=== PATIENT | male | born 2000 | race African-American/Black ===

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

== ENCOUNTER 2023-10-13 19:18 | Emergency (ER) | payer MEDICAID ==
[~2023-10-13] VITALS: Ht 175.3 cm; Wt 110.0 kg
[2023-10-13] MEDS ORDERED: ALBUTEROL SULF 2.5 MG/0.5ML(0.5%) NEB SOLN ONE (20:43)
[2023-10-13] MEDS ORDERED: predniSONE 20 MG TAB PO ONE (20:45)
[2023-10-13] MEDS ORDERED: ALBUTEROL SULF 2.5 MG/0.5ML(0.5%) NEB SOLN NEB ONE (20:45)
[2023-10-13] MEDS ORDERED: PANTOPRAZOLE 40 MG TAB PO ONE (20:45)
[2023-10-13] MEDS ORDERED: ALBU108A5 IN (22:54)
[2023-10-13] MEDS ORDERED: AZIT-81 PO (22:54)
[2023-10-13] MEDS ORDERED: PRED20TA2 PO (22:54)
[2023-10-13] MEDS ORDERED: PANT40TA2 PO (22:54)
[2023-10-13 23:57] VITALS: BP 137/87; PULSE 88; RESP 18; TEMP 99.2; O2SAT 98
== END 2023-10-13 23:59 | disposition home or self-care (01) ==
LOC: ER 19:18
DX: R06.02 Shortness of breath (principal); F12.10 Cannabis abuse, uncomplicated; F17.210 Nicotine dependence, cigarettes, uncomplicated
CPT/HCPCS: 71045; 93005; 94640; 99283; J7512

== ENCOUNTER 2025-03-21 15:36 | Inpatient (IN) | payer MEDICAID ==
[~2025-03-21] VITALS: Ht 175.3 cm; Wt 114.5 kg
[~2025-03-21 15:36] MED LIST: ALBU108A5 IN; AZIT-185 PO; PANT40TA2 PO; PRED20TA2 PO
--- NOTE | 2025-03-21 16:31 | DVH ---
CHEST RADIOGRAPH Indication: weakness Technique: Single frontal view of the chest was obtained Comparison: XY CHEST PORTABLE on DOS: 10/13/23 FINDINGS: Lines and Tubes: None Lungs: No focal consolidation. Pleura: No effusion. No pneumothorax. Cardiomediastinal contours: Unremarkable Bones: No acute osseous abnormality. IMPRESSION: 1. No acute cardiopulmonary disease. No significant change from 10/13/2023. HS:Y
--- NOTE | 2025-03-21 16:45 | ED.PDOC ---
History of Present Illness HPI Comments 24 y/o obese M presents with 3-4 day history of fatigue, poor appetite, and nausea after consuming alcohol, again, following 35 day abstinence. No other acute symptoms endorsed. Vitals: temperature of 97.0F, pulse of 77, respiratory rate 20, blood pressure of 122/56, and a SpO2 of 99%RAJuan Manuel POLLACK: HPI: Poor Historian. Past Medical History: Past Surgical History: REVIEW OF SYSTEMS: CONSTITUTIONAL: Denies acute: fever, diaphoresis, chills, HEAD: Denies acute: headache, photophobia Eyes: Denies acute: Double vision, vision loss, eye pain, eye discharge. EARS: Denies acute: tinnitus, hearing loss, ear discharge, ear pain, THROAT: Denies acute: sore throat, swelling, difficulty swallowing , pain with swallowing, change in voice. NECK: Denies acute: neck pain, neck swelling, stiff neck. HEART: Denies acute : chest pain, palpitations, LUNGS: Denies acute: SOB, wheezing, cough, hemoptysis ABDOMEN: Denies acute: abdominal pain, , Vomiting, diarrhea, melena , hematemesis, hematochezia SKIN: Denies acute: rash, redness, lesions, itchiness. EXTREMITIES: Denies acute: calf pain, numbness, tingling, weakness, denies pain in extremity. Denies acute: Low back pain. Neuro: Denies acute: focal neurological deficit, motor or sensory focal neurological deficit, tremors, seizure like activity, confusion, , change in mental status, loss of bowel or bladder function, cauda equina like symptoms. : Denies acute: dysuria, hematuria, flank pain, increase in urinary frequency. PSYCH: Denies acute: hallucination, suicidal ideation, homicidal ideation. PHYSICAL EXAM: General: -----no---acute distress, awake and alert. Head: normocephalic, atraumatic. Neck: supple, trachea is midline, no swelling. Throat: Normal phonation. Eyes:, no erythema, no purulent discharge, no proptosis, no icterus. Heart: regular rate, regular rhythm, no significant murmur appreciated. Lungs: no apparent respiratory distress, Able to speak in full sentences. No wheezing, no rhonchi, no crackles. No stridors Clear to auscultation bilaterally. Abdomen: non tender to palpation, non distended, soft, no guarding, no rebound, + bowel sounds. Neuro: Awake, Alert, oriented to name, self, situation, follows commands GCS=15. Speech is normal. Skin: no petechia, no purpura, no cyanosis, non-pale, not jaundice. Lower extremities: --no - Pitting edema no deformity, no focal swelling, no calf TTP. Makes eye contact. moves all four extremities. Face: no apparent facial droop. Ambulating in the ED independently. ED COURSE: DISCLAIMER: This medical document was created using an electronic medical record system with voice recognition software and computerized dictation system. Although this document has been carefully reviewed, there might still be some phonetic and typographical errors. Occasional wrong-word or "sound-alike" substitutions may have occurred due to the inherent limitations of voice recognition software. These areas are purely typographical due to imperfections of the software programs and do not reflect any compromise in the patient's medical care. Please read the chart carefully and recognize, using context, where these substitutions have occurred. Chief Complaint: Nausea/Vomiting Time Seen by MD: 16:00 Primary Care Provider: SUZE Allergies: Coded Allergies: NO KNOWN ALLERGIES (Unverified , 07/22/14) Home Meds Active Scripts Albuterol Sulfate (Albuterol Sulfate Hfa) 108 Mcg/Act Aer, 108 MCG IN TID, #1 AER Prov:DONAL DENISE MD 10/13/23 Pantoprazole Sodium Sesquihydr (Protonix) 40 Mg Tab, 40 MG PO BID, #30 TAB Prov:DONAL DENISE MD 10/13/23 Prednisone (Prednisone) 20 Mg Tab, 40 MG PO DAILY, #5 MG Prov:DONAL DENISE MD 10/13/23 Azithromycin (ZITHROMAX TABLET) 250 Mg Tb, 250 MG PO DAILY, #5 TAB Prov:DONAL DENISE MD 10/13/23 Information Source: Patient Mode of Arrival: Ambulatory Past Medical History PAST MEDICAL HISTORY: Denies Surgical History: Denies all surgeries Family History Family History: Unknown Social History Smoker: Non-Smoker Alcohol: Denies ETOH Use Drugs: Denies Drug Use Lives In: Home Was a procedure done? Was a procedure done?: No Differential Dx Considerations may include: Includes but not limited to thyroid disease, encephalopathy, electrolyte abnormality, sepsis, infection, intracranial pathology, drug adverse effects, arrhythmia, kidney insufficiency, ACS, CVA, malignancy, anemia X-Ray, Labs, Meds, VS Vital Signs Date Time Temp Pulse Resp B/P (MAP) Pulse Ox O2 Delivery O2 Flow Rate FiO2 03/21/25 15:37 97.0 77 20 122/56 (78) 99 97.0 Lab Test 03/21/25 16:56 03/21/25 16:30 Range/Units Urine Color [place] H Yellow Urine Clarity Turbid H Clear Urine pH 6.0 5.0-9.0 Urine Specific [place] 1.039 H 1.001-1.035 Urine Protein 3+ H Negative Urine Ketones 2+ H Negative Urine Blood 3+ H Negative /uL Urine Nitrite Negative Negative Urine Bilirubin 1+ Negative Urine Urobilinogen 2 H Negative mg/dL Urine Leukocyte Esterase Negative Negative /uL Urine RBC 6 0 - 3 /hpf Urine Microscopic WBC 7 H 0-3 /HPF Urine Squamous Epithelial Cells Many <5 /hpf Urine Transitional Epithelial Cells Few <2 /hpf Urine Bacteria None seen None Seen /hpf Urine Granular Casts Mod 0 /lpf Urine Mucus Few None Seen Urine Glucose Trace Normal mg/dL Urine Opiates Screen Neg NEGATIVE Urine Fentanyl Screen Neg NEGATIVE Urine Barbiturates Screen Neg NEGATIVE Urine Phencyclidine Screen Neg NEGATIVE Urine Amphetamines Screen Neg NEGATIVE Urine Benzodiazepines Screen Neg NEGATIVE Urine Cocaine Screen Neg NEGATIVE Urine Cannabinoids Screen Pos NEGATIVE White Blood Count 8.7 4.4-10.8 10^3/uL Red Blood Count 5.49 4.5-5.90 10^6/uL Hemoglobin 17.0 13.5-17.5 g/dL Hematocrit 50.2 41.0-53.0 % Mean Corpuscular Volume 91.3 80.0-100.0 fL Mean Corpuscular Hemoglobin 31.0 28.0-32.0 pg Mean Corpuscular Hemoglobin Concent 34.0 32.0-36.0 g/dL Red Cell Distribution Width 15.3 H 11.8-14.3 % Platelet Count 245 140-450 10^3/uL Mean Platelet Volume 9.3 6.9-10.8 fL Neutrophils (%) (Auto) 67.4 37.0-80.0 % Lymphocytes (%) (Auto) 22.7 10.0-50.0 % Monocytes (%) (Auto) 9.2 0.0-12.0 % Eosinophils (%) (Auto) 0.3 0.0-7.0 % Basophils (%) (Auto) 0.4 0.0-2.0 % Neutrophils # (Auto) 5.9 1.6-8.6 10 ^3/uL Lymphocytes # (Auto) 2.0 0.4-5.4 10 ^3/uL Monocytes # (Auto) 0.8 0-1.3 10 ^3/uL Eosinophils # (Auto) 0 0-0.8 10 ^3/uL Basophils # (Auto) 0 0-0.2 10 ^3/uL Nucleated Red Blood Cells 0.1 % Sodium Level 139 136-145 mmol/L Potassium Level 3.3 L 3.5-5.1 mmol/L Chloride Level 102 98-107 mmol/L Carbon Dioxide Level 20 20-31 mmol/L Anion Gap 17 H 5-15 Blood Urea Nitrogen 8 L 9-23 mg/dL Creatinine 0.80 0.700-1.30 mg/dL Glomerular Filtration Rate Calc 128 >90 mL/min BUN/Creatinine Ratio 10.0 10.0-20.0 Serum Glucose 89 74-106 mg/dL Lactic Acid Level 2.0 0.4-2.0 mmol/L Calcium Level 9.9 8.7-10.4 mg/dL Magnesium Level 2.0 1.6-2.6 mg/dL Total Bilirubin 0.8 0.2-1.0 mg/dL Aspartate Amino Transferase (AST) 548 H <34 U/L Alanine Aminotransferase (ALT) 151 H 7-40 U/L Alkaline Phosphatase 84 46-116 U/L Troponin I High Sensitivity 10 </=54 ng/L Total Protein 7.9 5.7-8.2 g/dL Albumin 5.2 H 3.2-4.8 g/dL [address] [address] Ph: [phone] DIAGNOSTIC IMAGING Diagnostic Imaging Report : [id number] Signed PATIENT: MARGA POLLACK ACCT: [id number] UNIT: [id number] : 2000 LOC: ER ROOM / BED: / AGE / SEX: 24 / M ADM STATUS: REG ER SERVICE 1603 ORDERING PHYSICIAN: SUZE JIM DO PROCEDURE(s): CXRP - CHEST PORTABLE REASON: weakness ORDER NUMBER(s): [id number], ACCESSION NUMBER(s): [id number] CHEST RADIOGRAPH Indication: weakness Technique: Single frontal view of the chest was obtained Comparison: XY CHEST PORTABLE on DOS: 10/13/23 FINDINGS: Lines and Tubes: None Lungs: No focal consolidation. Pleura: No effusion. No pneumothorax. Cardiomediastinal contours: Unremarkable Bones: No acute osseous abnormality. IMPRESSION: 1. No acute cardiopulmonary disease. No significant change from 10/13/2023. HS:Y ATED BY: CELSO CHARLES Jr., DO DICTATED DATE/TIME: 03/21/25 1629 SIGNED BY: CELSO CHARLES Jr., SIGNED DATE/TIME: 03/21/25 1629 CC: Time of 1ST Reevaluation: 16:30 Reevaluation 1ST: Unchanged Patient Education/Counseling: Diagnosis, Treatment, Need For Follow Up Family Education/Counseling: No Family Present Comments Patient presented with the above HPI.----generalized weak--workup was initiated. patient was found with the above mentioned diagnosis. the following medications were ordered: please refer to order lists of meds and tests obtained by myself Dr. Jim. Patient ED course and VS have been stabilized. Patient has been reassessed in the ED and remained in a stable condition. Pertinent incidental findings were discussed with the patient and/or family. Patient/family voices understanding and is agreeable with plan. Patient has been observed in the ED adequate length of time to insure improvement/stability. Escalation of care considered: Consideration of escalation to observation or admission Patient quit alcohol 35 days ago. He had small drinks few days ago. Patient was ADMITTED to the medicine team for further evaluation and treatment of their presentation. All the reports of any imaging studies that were ordered by myself were reviewed by myself. Departure 1 Departure Time of Disposition: 17:58 Impression: Primary Impression: Elevated LFTs Additional Impression: History of alcohol abuse Disposition: ADMITTED INPATIENT Admit to: Tele Condition: Guarded Discharged With: Self Critical Care Note Critical Care Time?: No I personally scribed for SUZE JIM DO ([email or web address]) on 03/21/25 at 16:45. Electronically submitted by Ananth Dubois ([email or web address]). SUZE JIM DO Mar 21, 2025 16:45
[2025-03-21 16:50] LABS: Basophils # (auto) 0 10 ^3/uL (0-0.2); Basophils % (auto) 0.4 % (0.0-2.0); Eosinophils # (auto) 0 10 ^3/uL (0-0.8); Eosinophils % (auto) 0.3 % (0.0-7.0); Hematocrit 50.2 % (41.0-53.0); Lymphocytes % (auto) 22.7 % (10.0-50.0); Mean Corpuscular Volume 91.3 fL (80.0-100.0); Monocytes # (auto) 0.8 10 ^3/uL (0-1.3); Monocytes % (auto) 9.2 % (0.0-12.0); Neutrophils # (auto) 5.9 10 ^3/uL (1.6-8.6); Neutrophils % (auto) 67.4 % (37.0-80.0); Nucleated Red Blood Cells % 0.1 %; Platelet Count (auto) 245 10^3/uL (140-450); Red Blood Cells 5.49 10^6/uL (4.5-5.90); Red Cell Distribution Width 15.3 % (11.8-14.3); White Blood Cell 8.7 10^3/uL (4.4-10.8)
[2025-03-21 16:56] LABS: Urine Bacteria None Seen /hpf (None Seen)
[2025-03-21 17:08] LABS: Alkaline Phosphatase 84 U/L (46-116); Anion Gap 17 (5-15); Bilirubin, Total 0.8 mg/dL (0.2-1.0); Calcium 9.9 mg/dL (8.7-10.4); Carbon Dioxide 20 mmol/L (20-31); Chloride 102 mmol/L (98-107); Glucose 89 mg/dL (74-106); Sodium 139 mmol/L (136-145); Total Protein 7.9 g/dL (5.7-8.2)
[2025-03-21 17:09] LABS: Alanine Aminotransferase 151 U/L (7-40); Albumin 5.2 g/dL (3.2-4.8); Aspartate Aminotransferase 548 U/L (<34); Blood Urea Nitrogen 8 mg/dL (9-23); Potassium 3.3 mmol/L (3.5-5.1)
[2025-03-21 17:22] LABS: Cannabinoid Screen, Urine Pos (NEGATIVE); Urine Blood 3+ /uL (Negative); Urine Clarity Turbid (Clear); Urine Color Orange (Yellow); Urine Mucus FEW (None Seen); Urine Protein, UAD 3+ (Negative); Urine Specific Gravity 1.039 (1.001-1.035); Urine Squamous Epithelial Cell MANY /hpf (<5); Urine Urobilinogen 2 mg/dL (Negative); Urine WBC 7 /HPF (0-3)
[2025-03-21 17:24] LABS: Amphetamine Screen, Urine Neg (NEGATIVE); Barbiturate Scree,Urine Neg (NEGATIVE); Benzodiazephine Screen, Urine Neg (NEGATIVE); Cocaine Screen, Urine Neg (NEGATIVE); Opiate Scree,Urine Neg (NEGATIVE); Phencyclidine Screen, Urine Neg (NEGATIVE)
[2025-03-21] MEDS: SODIUM CHLORIDE 0.9% 1,000 ML IV ONE (21:34)
[2025-03-22] MEDS ORDERED: DOCUSATE SOD 100 MG CAP PO PRN (01:45)
[2025-03-22] MEDS ORDERED: ONDANSETRON HCL 4 MG/2 ML VIAL IV PRN (01:45)
[2025-03-22] MEDS: POTASSIUM CHL 20MEQ/100ML 100 ML IV SCH (01:45)
[2025-03-22] MEDS ORDERED: HYDROcodone-ACET 5/325MG TAB PO PRN (01:45)
[2025-03-22] MEDS ORDERED: ACETAMINOPHEN 325 MG TAB PO PRN (01:45)
--- NOTE | 2025-03-22 02:42 | DVHHP2 ---
History of Present Illness Reason for Visit: Elevated liver enzymes History of Present Illness The patient is a 24-year-old male with past medical history of EtOH abuse who presented to [facility] ED with complaint of nausea and vomiting. Patient reports symptoms progressively get worse with poor appetite, fatigue, nausea after consuming alcohol following 35 days of abstinence, getting worse that prompted this visit. Patient was seen and evaluated in the ED, laboratory data shows WBC 8.7, platelets 245, sodium 139, potassium 3.3, BUN 8, creatinine 0.80, glucose 89, calcium 9.9, troponin 10, albumin 5.2, AST 548, ALT 151, blood pressure 126/56, heart rate 77, temperature 97.0 F, O2 saturation 99% on room air. Chest x-ray show no acute cardiopulmonary disease. Please see medication orders section in the computer. On my assessment, patient denied chest pain, no headache, no dizziness, no shortness of breaths, no nausea, no vomiting, no fever, no chills. Patient was admitted for further evaluation and medical management. Past Medical History EtOH abuse Past Surgical History Denies all surgeries Family History Reviewed, noncontributory to the management of this case. Past Social History The patient lives at home, denies smoking, alcohol or illicit drugs abuse. Review of Systems Constitutional: No: Fever, Chills, Sweats, Weakness, Malaise, Other Eyes: No: Pain, Vision change, Conjunctivae inflammation, Eyelid inflammation, Other, Redness ENT: No: Ear pain, Ear discharge, Nose pain, Nose discharge, Nose congestion, Mouth pain, Mouth swelling, Throat pain, Throat swelling, Other Respiratory: No: Cough, Dry, Shortness of breath, SOB with excertion, Wheezing, Hemoptysis, Pleuritic Pain, Sputum, Wheezing, Other Cardiovascular: No: Chest Pain, Palpitations, Orthopnea, Paroxysmal Noc. Dyspnea, Edema, Lt Headedness, Other Gastrointestinal: Nausea, Vomiting; No: Abdominal Pain, Diarrhea, Constipation, Melena, Hematochezia, Other Genitourinary: No Dysuria, No Frequency, No Incontinence, No Hematuria, No Retention, No Other Musculoskeletal: No: other, neck pain, shoulder pain, arm pain, back pain, hand pain, leg pain, foot pain Skin: No: Rash, Lesions, Jaundice, Bruising, Other Neurological: No: Weakness, Numbness, Incoordination, Change in speech, Confusion, Seizures, Other Allergies: Coded Allergies: NO KNOWN ALLERGIES (Unverified , 07/22/14) Medications Current Medications Medications Dose Ordered Sig/Gideon Route Start Time Stop Time Status Last Admin Dose Admin Potassium Chloride 100 ml @ 50 mls/hr Q2H IV 03/22/25 01:45 03/22/25 05:44 Lorazepam 1 mg Q2HP PRN IV 03/22/25 01:45 Sodium Chloride 1,000 ml @ 60 mls/hr [id number] IV 03/22/25 01:45 Acetaminophen/ Hydrocodone Bitart 1 tab Q4HP PRN PO 03/22/25 01:45 Ondansetron HCl 4 mg Q4HP PRN IV 03/22/25 01:45 Docusate Sodium 100 mg BIDPRN PRN PO 03/22/25 01:45 Acetaminophen 650 mg Q6HP PRN PO 03/22/25 01:45 Exam Vital Signs Vital Signs Date Time Temp Pulse Resp B/P (MAP) Pulse Ox O2 Delivery O2 Flow Rate FiO2 03/21/25 15:37 97.0 77 20 122/56 (78) 99 97.0 General Appearance: Alert, Oriented X3, Cooperative, No acute distress HEENT: Atraumatic, PERRLA, EOMI, Mucous membr. moist/pink Respiratory: Clear to auscultation, Normal air movement Cardiovascular: Regular rate, Normal S1, Normal S2, No murmurs Abdominal: Normal bowel sounds, Soft, No tenderness, No hepatospenomegaly, No masses Extremities: No clubbing, No cyanosis, No edema, Normal pulses, No tenderness/swelling Skin: No rashes, No breakdown, No significant lesion Neuro: Normal gait, Normal speech, Strength at 5/5 X4 ext, Normal tone, Sensation intact, Cranial nerves 3-12 NL, Reflexes 2+ Psych/Mental Status: Mental status NL, Mood NL Labs/Xrays Labs Test 03/21/25 16:56 03/21/25 16:30 Range/Units Urine Color [place] H Yellow Urine Clarity Turbid H Clear Urine pH 6.0 5.0-9.0 Urine Specific [place] 1.039 H 1.001-1.035 Urine Protein 3+ H Negative Urine Ketones 2+ H Negative Urine Blood 3+ H Negative /uL Urine Nitrite Negative Negative Urine Bilirubin 1+ Negative Urine Urobilinogen 2 H Negative mg/dL Urine Leukocyte Esterase Negative Negative /uL Urine RBC 6 0 - 3 /hpf Urine Microscopic WBC 7 H 0-3 /HPF Urine Squamous Epithelial Cells Many <5 /hpf Urine Transitional Epithelial Cells Few <2 /hpf Urine Bacteria None seen None Seen /hpf Urine Granular Casts Mod 0 /lpf Urine Mucus Few None Seen Urine Glucose Trace Normal mg/dL Urine Opiates Screen Neg NEGATIVE Urine Fentanyl Screen Neg NEGATIVE Urine Barbiturates Screen Neg NEGATIVE Urine Phencyclidine Screen Neg NEGATIVE Urine Amphetamines Screen Neg NEGATIVE Urine Benzodiazepines Screen Neg NEGATIVE Urine Cocaine Screen Neg NEGATIVE Urine Cannabinoids Screen Pos NEGATIVE White Blood Count 8.7 4.4-10.8 10^3/uL Red Blood Count 5.49 4.5-5.90 10^6/uL Hemoglobin 17.0 13.5-17.5 g/dL Hematocrit 50.2 41.0-53.0 % Mean Corpuscular Volume 91.3 80.0-100.0 fL Mean Corpuscular Hemoglobin 31.0 28.0-32.0 pg Mean Corpuscular Hemoglobin Concent 34.0 32.0-36.0 g/dL Red Cell Distribution Width 15.3 H 11.8-14.3 % Platelet Count 245 140-450 10^3/uL Mean Platelet Volume 9.3 6.9-10.8 fL Neutrophils (%) (Auto) 67.4 37.0-80.0 % Lymphocytes (%) (Auto) 22.7 10.0-50.0 % Monocytes (%) (Auto) 9.2 0.0-12.0 % Eosinophils (%) (Auto) 0.3 0.0-7.0 % Basophils (%) (Auto) 0.4 0.0-2.0 % Neutrophils # (Auto) 5.9 1.6-8.6 10 ^3/uL Lymphocytes # (Auto) 2.0 0.4-5.4 10 ^3/uL Monocytes # (Auto) 0.8 0-1.3 10 ^3/uL Eosinophils # (Auto) 0 0-0.8 10 ^3/uL Basophils # (Auto) 0 0-0.2 10 ^3/uL Nucleated Red Blood Cells 0.1 % Sodium Level 139 136-145 mmol/L Potassium Level 3.3 L 3.5-5.1 mmol/L Chloride Level 102 98-107 mmol/L Carbon Dioxide Level 20 20-31 mmol/L Anion Gap 17 H 5-15 Blood Urea Nitrogen 8 L 9-23 mg/dL Creatinine 0.80 0.700-1.30 mg/dL Glomerular Filtration Rate Calc 128 >90 mL/min BUN/Creatinine Ratio 10.0 10.0-20.0 Serum Glucose 89 74-106 mg/dL Lactic Acid Level 2.0 0.4-2.0 mmol/L Calcium Level 9.9 8.7-10.4 mg/dL Magnesium Level 2.0 1.6-2.6 mg/dL Total Bilirubin 0.8 0.2-1.0 mg/dL Aspartate Amino Transferase (AST) 548 H <34 U/L Alanine Aminotransferase (ALT) 151 H 7-40 U/L Alkaline Phosphatase 84 46-116 U/L Troponin I High Sensitivity 10 </=54 ng/L Total Protein 7.9 5.7-8.2 g/dL Albumin 5.2 H 3.2-4.8 g/dL PATIENT: MARGA POLLACK ACCT: [id number] UNIT: [id number] : 2000 LOC: ER ROOM / BED: / AGE / SEX: 24 / M ADM STATUS: REG ER SERVICE 1603 ORDERING PHYSICIAN: SUZE JIM DO PROCEDURE(s): CXRP - CHEST PORTABLE REASON: weakness ORDER NUMBER(s): [id number], ACCESSION NUMBER(s): [id number] CHEST RADIOGRAPH Indication: weakness Technique: Single frontal view of the chest was obtained Comparison: XY CHEST PORTABLE on DOS: 10/13/23 FINDINGS: Lines and Tubes: None Lungs: No focal consolidation. Pleura: No effusion. No pneumothorax. Cardiomediastinal contours: Unremarkable Bones: No acute osseous abnormality. IMPRESSION: 1. No acute cardiopulmonary disease. No significant change from 10/13/2023. Assessment/Plan Assessment/Plan Elevated liver enzymes Hypokalemia Intractable nausea and vomiting History of alcohol abuse Plan 1. Admit to med surge unit 2. Breathing treatment 3. Pain control management 4. Management of fluids and electrolytes 5. Consultation for hospitalist 6. Diagnostic tests chest x-ray 7. DVT prophylaxis on SCDs 8. Repeat labs CBC, CMP in a.m. 9. Continue with current medical management 10. Treatment plan discussed with patient and RN. Patient verbalized understanding. Plan discussed with: Patient, Other (RN) My Orders Orders - JARON MAE DNP Procedure Category Date Status Time Complete Blood Count LAB 03/22/25 Logged 04:00 Comprehensive LAB 03/22/25 Logged Metabolic Panel 04:00 Potassium Chl PHA 03/22/25 In Process 20meq/100ml 01:45 * Gi Dvh [employer] CONS 03/22/25 Transmitted 01:33 Lorazepam 2mg/Ml Inj PHA 03/22/25 In Process (Ativan Inj) 01:45 Allergies CJ 03/22/25 In Process 01:33 Code Status CODE 03/22/25 Transmitted 01:33 Sodium Chloride 0.9% PHA 03/22/25 In Process 01:45 Oxygen Per Hour RT 03/22/25 Transmitted 01:33 Hydrocodone-Acet PHA 03/22/25 In Process 5/325mg Tab ([place] 01:45 Ondansetron Hcl PHA 03/22/25 In Process (Zofran) 01:45 Docusate Sodium PHA 03/22/25 In Process Capsule (Colace 01:45 Complete Blood Count LAB 03/23/25 Verified 04:00 Comprehensive LAB 03/23/25 Verified Metabolic Panel 04:00 Condition: Serious CJ 03/22/25 In Process 01:33 Acetaminophen Tablet PHA 03/22/25 In Process (Tylenol Tablet) 01:45 Clear Liq Diet DIET 03/22/25 Transmitted Breakfast Bedrest With Bathroom CJ 03/22/25 In Process Privileg 01:33 Sequential CJ 03/22/25 In Process Compression Device Problem List: (1) Elevated liver enzymes (2) Hypokalemia (3) Intractable nausea and vomiting (4) History of alcohol abuse Date of Service: Mar 22, 2025 Billing Provider: JARON MAE DNP Common Visit Codes: [id number] INP/OBS CARE (HIGH) JARON MAE DNP Mar 22, 2025 02:42
[2025-03-22] MEDS ORDERED: MORPHINE SULFATE INJ 2 MG/ml SYRG IV PRN (02:45)
[2025-03-22] MEDS ORDERED: NITROGLYCERIN 0.4 MG SL TAB SL PRN (02:45)
[2025-03-22 05:12] LABS: Basophils # (auto) 0 10 ^3/uL (0-0.2); Basophils % (auto) 0.4 % (0.0-2.0); Eosinophils # (auto) 0 10 ^3/uL (0-0.8); Eosinophils % (auto) 0.3 % (0.0-7.0); Hematocrit 47.5 % (41.0-53.0); Hemoglobin 15.9 g/dL (13.5-17.5); Lymphocytes # (auto) 2.1 10 ^3/uL (0.4-5.4); Lymphocytes % (auto) 25.3 % (10.0-50.0); Mean Corpuscular Hemoglobin 30.6 pg (28.0-32.0); Mean Corpuscular Hgb Conc. 33.6 g/dL (32.0-36.0); Mean Corpuscular Volume 91.1 fL (80.0-100.0); Monocytes # (auto) 0.7 10 ^3/uL (0-1.3); Neutrophils # (auto) 5.5 10 ^3/uL (1.6-8.6); Nucleated Red Blood Cells % 0.1 %; Platelet Count (auto) 228 10^3/uL (140-450); Red Blood Cells 5.21 10^6/uL (4.5-5.90); Red Cell Distribution Width 15.4 % (11.8-14.3); White Blood Cell 8.3 10^3/uL (4.4-10.8)
[2025-03-22 05:25] LABS: Alkaline Phosphatase 75 U/L (46-116); Anion Gap 19 (5-15); BUN/Creatinine Ratio 8.9 (10.0-20.0); Bilirubin, Total 0.7 mg/dL (0.2-1.0); Calcium 10.3 mg/dL (8.7-10.4); Chloride 103 mmol/L (98-107); Potassium 3.6 mmol/L (3.5-5.1); Sodium 140 mmol/L (136-145); Total Protein 7.6 g/dL (5.7-8.2)
[2025-03-22 05:30] LABS: Alanine Aminotransferase 140 U/L (7-40); Aspartate Aminotransferase 633 U/L (<34); Blood Urea Nitrogen 7 mg/dL (9-23); Carbon Dioxide 18 mmol/L (20-31); Glucose 65 mg/dL (74-106)
[2025-03-22 08:00] VITALS: BP 135/82; PULSE 80; RESP 16; TEMP 98.3; O2SAT 99
[2025-03-22] MEDS: LORazepam 2MG/ML-1ML VIAL IV PRN (08:24)
[2025-03-22] MEDS: SODIUM CHLORIDE 0.9% 1,000 ML IV SCH (08:24)
--- NOTE | 2025-03-22 11:13 | DVH ---
ABDOMINAL ULTRASOUND CLINICAL HISTORY: elevated liver tests TECHNIQUE: Multiple grayscale and color Doppler ultrasound images were obtained of the abdomen. WID: COMPARISON: None FINDINGS: Liver and Biliary System: Increased echogenicity, normal size measuring 15.6 cm. No focal hepatic o bservations. No intrahepatic bile duct dilatation. The common duct not visualized cm at the gayathri hepatis. The gallbladder normal caliber without wall thickening or cholelithiasis Pancreas: Not well-visualized due to overlying bowel gas Kidneys: The right kidney is 10.33 cm . No hydronephrosis, increased echogenicity, shadowing stone, or focal lesion. IMPRESSION: Hepatic steatosis.
[2025-03-22 12:00] VITALS: BP 142/95; PULSE 0; RESP 16; TEMP 98.3; O2SAT 100
--- NOTE | 2025-03-22 14:10 | DVHPN2 ---
Changes from previous H/P or p: No Changes Eyes: No Pain, No Vision change, No Conjunctivae inflammation, No Eyelid inflammation, No Other, No Redness ENT: No Ear pain, No Ear discharge, No Nose pain, No Nose discharge, No Nose congestion, No Mouth pain, No Mouth swelling, No Throat pain, No Throat swelling, No Other Cardiovascular: No Chest Pain, No Palpitations, No Orthopnea, No Paroxysmal Noc. Dyspnea, No Edema, No Lt Headedness, No Other Respiratory: No Cough, No Dry, No Shortness of breath, No SOB with excertion, No Wheezing, No Hemoptysis, No Pleuritic Pain, No Sputum, No Other Gastrointestinal: Nausea, Vomiting; No Abdominal Pain, No Diarrhea, No Constipation, No Melena, No Hematochezia, No Other Genitourinary: No Dysuria, No Frequency, No Incontinence, No Hematuria, No Retention, No Other Musculoskeletal: No other, No neck pain, No shoulder pain, No arm pain, No back pain, No hand pain, No leg pain, No foot pain Skin: No Rash, No Lesions, No Jaundice, No Bruising, No Other Objective Vitals Vital Signs Date Time Temp Pulse Resp B/P (MAP) Pulse Ox O2 Delivery O2 Flow Rate FiO2 03/22/25 08:00 98.3 80 16 135/82 (99) 99 98.3 03/22/25 07:38 Room Air Intake/Output Intake and Output 03/22/25 07:00 Intake Total 1000 ml Balance 1000 ml Intake IV Total 1000 ml Medications Current Medications Medications Dose Ordered Sig/Gideon Route Start Time Stop Time Status Last Admin Dose Admin Lorazepam 1 mg Q2HP PRN IV 03/22/25 01:45 03/22/25 08:24 1 MG Sodium Chloride 1,000 ml @ 60 mls/hr [id number] IV 03/22/25 01:45 03/22/25 08:24 60 MLS/HR Acetaminophen/ Hydrocodone Bitart 1 tab Q4HP PRN PO 03/22/25 01:45 Ondansetron HCl 4 mg Q4HP PRN IV 03/22/25 01:45 Docusate Sodium 100 mg BIDPRN PRN PO 03/22/25 01:45 Acetaminophen 650 mg Q6HP PRN PO 03/22/25 01:45 Nitroglycerin 0.4 mg Q5MINP PRN SL 03/22/25 02:45 Morphine Sulfate 2 mg Q30M PRN IV 03/22/25 02:45 Laboratory Results Laboratory Tests 03/22/25 04:49 Chemistry Test 03/21/25 16:30 03/22/25 04:49 Albumin 5.2 g/dL (3.2-4.8) H 5.0 g/dL (3.2-4.8) H Calcium Level 9.9 mg/dL (8.7-10.4) 10.3 mg/dL (8.7-10.4) Magnesium Level 2.0 mg/dL (1.6-2.6) Total Protein 7.9 g/dL (5.7-8.2) 7.6 g/dL (5.7-8.2) LFT Test 03/21/25 16:30 03/22/25 04:49 Alanine Aminotransferase (ALT) 151 U/L (7-40) H 140 U/L (7-40) H Alkaline Phosphatase 84 U/L (46-116) 75 U/L (46-116) Aspartate Amino Transferase (AST) 548 U/L (<34) H 633 U/L (<34) H Total Bilirubin 0.8 mg/dL (0.2-1.0) 0.7 mg/dL (0.2-1.0) Urinalysis Test 03/21/25 16:56 Urine Color [place] (Yellow) H Urine Clarity Turbid (Clear) H Urine pH 6.0 (5.0-9.0) Urine Specific [place] 1.039 (1.001-1.035) Urine Protein 3+ (Negative) H Urine Ketones 2+ (Negative) H Urine Blood 3+ /uL (Negative) H Urine Nitrite Negative (Negative) Urine Bilirubin 1+ (Negative) Urine Urobilinogen 2 mg/dL (Negative) H Urine Leukocyte Esterase Negative /uL (Negative) Urine RBC 6 /hpf (0 - 3) Urine Microscopic WBC 7 /HPF (0-3) H Urine Squamous Epithelial Cells Many /hpf (<5) Urine Transitional Epithelial Cells Few /hpf (<2) Urine Bacteria None seen /hpf (None Seen) Urine Granular Casts Mod /lpf (0) Urine Mucus Few (None Seen) Urine Glucose Trace mg/dL (Normal) Labs and/or images reviewed: Labs reviewed by me, Image(s) reviewed by me Assessment/Plan Assessment/Plan Intractable nausea and vomiting: Pantoprazole Zofran, consult by GI Dr. Moe Tomas Acute alcoholic withdrawal: Banana bag Librium protocol Elevated liver enzymes secondary to alcohol abuse: Ultrasound shows fatty liver Acute dehydration: IV fluids Chronic current alcohol abuse: Counseling Prognosis guarded Time spent 46 minutes Patient is full code Advanced care planning time 20 minutes Plan discussed with: Patient Date of Service: Mar 22, 2025 Billing Provider: KEYANA AVILA MD Common Visit Codes: [id number] INP/OBS CARE(HIGH) Secondary Visit Codes: [id number] CARE PLAN 30 MINUTES KEYANA AVILA MD Mar 22, 2025 14:10
[2025-03-22] MEDS ORDERED: chlordiazePOXIDE HCL 25 MG CAP PO SCH (14:15)
--- NOTE | 2025-03-22 14:54 | DVHINCON2 ---
Date of service: Mar 22, 2025 Referring Physician Randy Seay Reason for Consultation Elevated liver enzymes History of Present Illness The patient is a 24-year-old male with past medical history of EtOH abuse who presented to [facility] ED with complaint of nausea and vomiting. Gary howe reports symptoms progressively get worse with poor appetite, fatigue, nausea after consuming alcohol following 35 days of abstinence, getting worse that prompted this visit. Patient had elevated liver enzymes and GI was consulted. Patient was seen in [facility]. He is awake alert in no acute distress. He has no further nausea vomiting and he is tolerating clear liquid diet. Patient states he is going to continue to be abstinent from alcohol Past Medical History Past Medical History EtOH abuse Anxiety depression Past Surgical History Wrist surgery Family History: Schizophrenia G8 FATHER Allergies: Coded Allergies: Amoxicillin (Verified Allergy, Intermediate, 03/22/25) Ampicillin (Verified Allergy, Intermediate, 03/22/25) Home Meds Active Scripts Albuterol Sulfate (Albuterol Sulfate Hfa) 108 Mcg/Act Aer, 108 MCG IN TID, #1 AER Prov:DONAL DENISE MD 10/13/23 Pantoprazole Sodium Sesquihydr (Protonix) 40 Mg Tab, 40 MG PO BID, #30 TAB Prov:DONAL DENISE MD 10/13/23 Prednisone (Prednisone) 20 Mg Tab, 40 MG PO DAILY, #5 MG Prov:DONAL DENISE MD 10/13/23 Azithromycin (ZITHROMAX TABLET) 250 Mg Tb, 250 MG PO DAILY, #5 TAB Prov:DONAL DENISE MD 10/13/23 Current Medications Current Medications Medications (Trade) Dose Ordered Sig/Gideon Route PRN Reason Start Time Stop Time Status Last Admin Potassium Chloride 100 ml @ 50 mls/hr Q2H IV 03/22/25 01:45 03/22/25 05:44 DC Lorazepam (Ativan Inj) 1 mg Q2HP PRN IV ANXIETY 03/22/25 01:45 03/22/25 08:24 Sodium Chloride 1,000 ml @ 60 mls/hr [id number] IV 03/22/25 01:45 03/22/25 08:24 Acetaminophen/ Hydrocodone Bitart ([place] 5/325MG Tab) 1 tab Q4HP PRN PO MODERATE PAIN (4-6 PAIN SCALE) 03/22/25 01:45 Ondansetron HCl (Zofran) 4 mg Q4HP PRN IV NAUSEA / VOMITING 03/22/25 01:45 Docusate Sodium (Colace Capsule) 100 mg BIDPRN PRN PO FOR CONSTIPATION 03/22/25 01:45 Acetaminophen (Tylenol Tablet) 650 mg Q6HP PRN PO PAIN SCALE 1-3 OR TEMP>100.4 03/22/25 01:45 Nitroglycerin (Ntrostat Sublingual) 0.4 mg Q5MINP PRN SL FOR CHEST PAIN 03/22/25 02:45 Morphine Sulfate 2 mg Q30M PRN IV FOR CHEST PAIN 03/22/25 02:45 Chlordiazepoxide HCl (Librium Capsule) 50 mg Q8H PO 03/22/25 14:15 03/23/25 06:16 UNV Chlordiazepoxide HCl (Librium Capsule) 50 mg Q12HR PO 03/23/25 10:00 03/23/25 22:01 UNV Chlordiazepoxide HCl (Librium Capsule) 25 mg Q12HR PO 03/24/25 10:00 03/24/25 22:01 UNV Chlordiazepoxide HCl (Librium Capsule) 25 mg QAM PO 03/25/25 07:00 03/25/25 07:01 UNV Folic Acid 1 mg/ Multivitamins 10 ml/Magnesium Sulfate 8 meq/ Thiamine HCl 100 mg/Dextrose 1,013.2 ml @ 125.001 mls/hr DAILY@1800 INJ 03/22/25 18:00 UNV Pantoprazole Sodium (Protonix) 40 mg BID IV 03/22/25 22:00 UNV Vital Signs Vital Signs Date Time Temp Pulse Resp B/P (MAP) Pulse Ox O2 Delivery O2 Flow Rate FiO2 03/22/25 12:00 98.3 0 16 142/95 (111) 100 98.3 03/22/25 07:38 Room Air Physical Exam General Appearance: Alert, Oriented X3, Cooperative, No acute distress HEENT: Atraumatic, PERRLA, EOMI, Mucous membr. moist/pink Respiratory: Clear to auscultation, Normal air movement Cardiovascular: Regular rate, Normal S1, Normal S2, No murmurs Abdominal: Normal bowel sounds, Soft, No tenderness, No hepatospenomegaly, No masses Extremities: No clubbing, No cyanosis, No edema, Normal pulses, No tenderness/swelling Skin: No rashes, No breakdown, No significant lesion Neuro: Normal gait, Normal speech, Strength at 5/5 X4 ext, Normal tone, Sensation intact, Cranial nerves 3-12 NL, Reflexes 2+ Psych/Mental Status: Mental status NL, Mood NL Labs/Diagnostic Data Labs Test 03/22/25 10:41 03/22/25 04:49 03/21/25 16:56 03/21/25 16:30 Range/Units White Blood Count 8.3 4.4-10.8 10^3/uL Red Blood Count 5.21 4.5-5.90 10^6/uL Hemoglobin 15.9 13.5-17.5 g/dL Hematocrit 47.5 41.0-53.0 % Mean Corpuscular Volume 91.1 80.0-100.0 fL Mean Corpuscular Hemoglobin 30.6 28.0-32.0 pg Mean Corpuscular Hemoglobin Concent 33.6 32.0-36.0 g/dL Red Cell Distribution Width 15.4 H 11.8-14.3 % Platelet Count 228 140-450 10^3/uL Mean Platelet Volume 9.0 6.9-10.8 fL Neutrophils (%) (Auto) 66.0 37.0-80.0 % Lymphocytes (%) (Auto) 25.3 10.0-50.0 % Monocytes (%) (Auto) 8.0 0.0-12.0 % Eosinophils (%) (Auto) 0.3 0.0-7.0 % Basophils (%) (Auto) 0.4 0.0-2.0 % Neutrophils # (Auto) 5.5 1.6-8.6 10 ^3/uL Lymphocytes # (Auto) 2.1 0.4-5.4 10 ^3/uL Monocytes # (Auto) 0.7 0-1.3 10 ^3/uL Eosinophils # (Auto) 0 0-0.8 10 ^3/uL Basophils # (Auto) 0 0-0.2 10 ^3/uL Nucleated Red Blood Cells 0.1 % Sodium Level 140 136-145 mmol/L Potassium Level 3.6 3.5-5.1 mmol/L Chloride Level 103 98-107 mmol/L Carbon Dioxide Level 18 L 20-31 mmol/L Anion Gap 19 H 5-15 Blood Urea Nitrogen 7 L 9-23 mg/dL Creatinine 0.79 0.700-1.30 mg/dL Glomerular Filtration Rate Calc 129 >90 mL/min BUN/Creatinine Ratio 8.9 L 10.0-20.0 Serum Glucose 65 L 74-106 mg/dL Calcium Level 10.3 8.7-10.4 mg/dL Total Bilirubin 0.7 0.2-1.0 mg/dL Aspartate Amino Transferase (AST) 633 H <34 U/L Alanine Aminotransferase (ALT) 140 H 7-40 U/L Alkaline Phosphatase 75 46-116 U/L Total Protein 7.6 5.7-8.2 g/dL Albumin 5.0 H 3.2-4.8 g/dL Urine Color [place] H Yellow Urine Clarity Turbid H Clear Urine pH 6.0 5.0-9.0 Urine Specific [place] 1.039 H 1.001-1.035 Urine Protein 3+ H Negative Urine Ketones 2+ H Negative Urine Blood 3+ H Negative /uL Urine Nitrite Negative Negative Urine Bilirubin 1+ Negative Urine Urobilinogen 2 H Negative mg/dL Urine Leukocyte Esterase Negative Negative /uL Urine RBC 6 0 - 3 /hpf Urine Microscopic WBC 7 H 0-3 /HPF Urine Squamous Epithelial Cells Many <5 /hpf Urine Transitional Epithelial Cells Few <2 /hpf Urine Bacteria None seen None Seen /hpf Urine Granular Casts Mod 0 /lpf Urine Mucus Few None Seen Urine Glucose Trace Normal mg/dL Urine Opiates Screen Neg NEGATIVE Urine Fentanyl Screen Neg NEGATIVE Urine Barbiturates Screen Neg NEGATIVE Urine Phencyclidine Screen Neg NEGATIVE Urine Amphetamines Screen Neg NEGATIVE Urine Benzodiazepines Screen Neg NEGATIVE Urine Cocaine Screen Neg NEGATIVE Urine Cannabinoids Screen Pos NEGATIVE Lactic Acid Level 2.0 0.4-2.0 mmol/L Magnesium Level 2.0 1.6-2.6 mg/dL Troponin I High Sensitivity 10 </=54 ng/L RUQ USG IMPRESSION: Hepatic steatosis. Problems(with codes): (1) Intractable nausea and vomiting (2) Elevated liver enzymes (3) Elevated LFTs (4) History of alcohol abuse (5) GERD (gastroesophageal reflux disease) Plan/Recommendation Plan Advance diet as tolerated Continue to monitor labs Supportive care IV ppi and Zofran as needed Right upper quadrant ultrasound Hepatitis panel Outpatient follow up with GI Services after discharge Continue abstinence Plan discussed with: Patient TIAGO SENA MD Mar 22, 2025 14:54
[2025-03-22] MEDS ORDERED: FOLIC ACID 1 MG, MULTIPLE VITAMIN 10 ML, MAGNESIUM SULF SDV 50% 8 MEQ, THIAMINE INJ 100... INJ SCH (18:00)
[2025-03-22] MEDS ORDERED: PANTOPRAZOLE 40 MG/10 ML VIAL INJ IV SCH (22:00)
--- NOTE | 2025-03-23 09:15 | DVHDS2 ---
Discharge Summary Date of Admission Mar 22, 2025 at 02:41 Date of Discharge: Mar 22, 2025 Admitting Diagnosis Abdominal pain nausea and vomiting Wounds: None Labs/Diagnostic Data: Laboratory Results Test 03/22/25 10:41 03/22/25 04:49 03/21/25 16:56 03/21/25 16:30 White Blood Count 8.3 10^3/uL (4.4-10.8) Red Blood Count 5.21 10^6/uL (4.5-5.90) Hemoglobin 15.9 g/dL (13.5-17.5) Hematocrit 47.5 % (41.0-53.0) Mean Corpuscular Volume 91.1 fL (80.0-100.0) Mean Corpuscular Hemoglobin 30.6 pg (28.0-32.0) Mean Corpuscular Hemoglobin Concent 33.6 g/dL (32.0-36.0) Red Cell Distribution Width 15.4 % (11.8-14.3) Platelet Count 228 10^3/uL (140-450) Mean Platelet Volume 9.0 fL (6.9-10.8) Neutrophils (%) (Auto) 66.0 % (37.0-80.0) Lymphocytes (%) (Auto) 25.3 % (10.0-50.0) Monocytes (%) (Auto) 8.0 % (0.0-12.0) Eosinophils (%) (Auto) 0.3 % (0.0-7.0) Basophils (%) (Auto) 0.4 % (0.0-2.0) Neutrophils # (Auto) 5.5 10 ^3/uL (1.6-8.6) Lymphocytes # (Auto) 2.1 10 ^3/uL (0.4-5.4) Monocytes # (Auto) 0.7 10 ^3/uL (0-1.3) Eosinophils # (Auto) 0 10 ^3/uL (0-0.8) Basophils # (Auto) 0 10 ^3/uL (0-0.2) Nucleated Red Blood Cells 0.1 % Sodium Level 140 mmol/L (136-145) Potassium Level 3.6 mmol/L (3.5-5.1) Chloride Level 103 mmol/L (98-107) Carbon Dioxide Level 18 mmol/L (20-31) Anion Gap 19 (5-15) Blood Urea Nitrogen 7 mg/dL (9-23) Creatinine 0.79 mg/dL (0.700-1.30) Glomerular Filtration Rate Calc 129 mL/min (>90) BUN/Creatinine Ratio 8.9 (10.0-20.0) Serum Glucose 65 mg/dL (74-106) Calcium Level 10.3 mg/dL (8.7-10.4) Total Bilirubin 0.7 mg/dL (0.2-1.0) Aspartate Amino Transferase (AST) 633 U/L (<34) Alanine Aminotransferase (ALT) 140 U/L (7-40) Alkaline Phosphatase 75 U/L (46-116) Total Protein 7.6 g/dL (5.7-8.2) Albumin 5.0 g/dL (3.2-4.8) Urine Color [place] (Yellow) Urine Clarity Turbid (Clear) Urine pH 6.0 (5.0-9.0) Urine Specific [place] 1.039 (1.001-1.035) Urine Protein 3+ (Negative) Urine Ketones 2+ (Negative) Urine Blood 3+ /uL (Negative) Urine Nitrite Negative (Negative) Urine Bilirubin 1+ (Negative) Urine Urobilinogen 2 mg/dL (Negative) Urine Leukocyte Esterase Negative /uL (Negative) Urine RBC 6 /hpf (0 - 3) Urine Microscopic WBC 7 /HPF (0-3) Urine Squamous Epithelial Cells Many /hpf (<5) Urine Transitional Epithelial Cells Few /hpf (<2) Urine Bacteria None seen /hpf (None Seen) Urine Granular Casts Mod /lpf (0) Urine Mucus Few (None Seen) Urine Glucose Trace mg/dL (Normal) Urine Opiates Screen Neg (NEGATIVE) Urine Fentanyl Screen Neg (NEGATIVE) Urine Barbiturates Screen Neg (NEGATIVE) Urine Phencyclidine Screen Neg (NEGATIVE) Urine Amphetamines Screen Neg (NEGATIVE) Urine Benzodiazepines Screen Neg (NEGATIVE) Urine Cocaine Screen Neg (NEGATIVE) Urine Cannabinoids Screen Pos (NEGATIVE) Lactic Acid Level 2.0 mmol/L (0.4-2.0) Magnesium Level 2.0 mg/dL (1.6-2.6) Troponin I High Sensitivity 10 ng/L (</=54) Other Laboratory Tests 03/22/25 04:49 Brief Hx & Hospital Course: 24-year-old male with a chronic alcohol abuse came in for nausea and vomiting. Patient was found to be in alcoholic withdrawal treated with a banana bag Librium pantoprazole Zofran GI consult by Dr. Moe Tomas liver enzymes elevated secondary to alcohol abuse ultrasound shows fatty liver. Patient was counseled about quitting alcohol. Patient was seen in the ER holding area. While awaiting further stabilization he has decided to leave AMA and left AMA consequences complications explained to the patient and he and he verbalized understanding. General condition satisfactory at the time of leaving AMA per nurse's notes Consults/Reason for consult GI Dr. Moe Tomas Operations or Procedures CT abdomen pelvis without contrast Condition at Discharge: Fair Final Diagnosis/Problems List Intractable nausea and vomiting: Pantoprazole Zofran, consult by GI Dr. Moe Tomas Acute alcoholic withdrawal: Banana bag Librium protocol Elevated liver enzymes secondary to alcohol abuse: Ultrasound shows fatty liver Acute dehydration: IV fluids Chronic current alcohol abuse: Counseling Discharge Disposition: AMA Discharge Instruct/Medications Diet comment: NOT APPLICABLE NEW LINE PATIENT LEFT AMA 36 (Time taken for discharge summary 36 minutes) Discharge Statement: "Patient was advised to return to the ER or call 911 if any headaches, dizziness, shortness of breath, chest pain, abdominal pain, bleeding, fevers, or worsening of medical condition. Patient was counseled about treatment plan, medications, possible side effects, patientverbalized understanding. All questions were answered to the best of my ability. This discharge took greater then 30 minutes in planning, reviewing documentation, counseling the patient, and discussing with other team members." ASSESSMENT ASSESSMENT Hospital Course Uneventful Assessment Date of Service: Mar 23, 2025 Billing Provider: KEYANA AVILA MD Common Visit Codes: 34969-DGK/OBS DISCH DAY >30min KEYANA AVILA MD Mar 23, 2025 09:15
[2025-03-23] MEDS ORDERED: chlordiazePOXIDE HCL 25 MG CAP PO SCH (10:00)
[2025-03-23 10:28] LABS: Hepatitis B Core Total AB Negative (Negative)
[2025-03-23 10:37] LABS: Hepatitis A Total Antibody Positive (Negative); Hepatitis B Surface Antibody Negative (Negative); Hepatitis B Surface Antigen Negative (Negative); Hepatitis C Antibody Negative (Negative)
[2025-03-24] MEDS ORDERED: chlordiazePOXIDE HCL 25 MG CAP PO SCH (10:00)
[2025-03-25] MEDS ORDERED: chlordiazePOXIDE HCL 25 MG CAP PO SCH (07:00)
== END 2025-03-22 14:45 | disposition left against medical advice (07) | DRG 422 ==
LOC: ER 15:36 → OVERFLOW 03-22 02:41
PROVIDERS: ADMIT Nurse Practitioner Family; ATTEND Nurse Practitioner Family
DX: E86.0 Dehydration (principal); K76.0 Fatty (change of) liver, not elsewhere classified; E66.9 Obesity, unspecified; E87.6 Hypokalemia; F10.239 Alcohol dependence with withdrawal, unspecified; Z68.37 Body mass index [BMI] 37.0-37.9, adult; K21.9 Gastro-esophageal reflux disease without esophagitis; F41.9 Anxiety disorder, unspecified; F32.A Depression, unspecified; R79.89 Other specified abnormal findings of blood chemistry; Z53.29 Procedure and treatment not carried out because of patient's decision for other reasons; Z81.8 Family history of other mental and behavioral disorders; Z88.0 Allergy status to penicillin; Z71.41 Alcohol abuse counseling and surveillance of alcoholic
CPT/HCPCS: 36415; 71045; 76705; 80053; 80307; 81001; 83605; 83735; 84484; 85025; 86038; 86704; 86706; 86708; 86803; 87340; 96361; 96374; G0378